=== PATIENT | female | born 2000 | race Caucasian/White ===

== ENCOUNTER 2019-07-02 18:05 | Emergency (ER) | payer OTHER, SELFPAY ==
[2019-07-02 18:10] VITALS: BP 104/57; PULSE 68; RESP 14; TEMP 36.4; O2SAT 100
--- NOTE | 2019-07-02 18:30 | ED.FEMALEGU ---
HPI - Female Genitourinary General Chief complaint: Urogenital-Female Stated complaint: uti History of Present Illness HPI Narrative: Patient states that she has been having urinary symptoms for the past month and this on continues to stay and she figured she would come in to get it treated due to it is not going anywhere. Related Data Home Medications Medication Instructions Recorded Confirmed sulfacetamide sodium-sulfur 1 applic TOPICAL BID 07/02/19 07/02/19 Allergies Allergy/AdvReac Type Severity Reaction Status Date / Time No Known Allergies Allergy Verified 07/02/19 18:19 Review of Systems Review of Systems: Narrative: CONSTITUTIONAL: Denies fever, chills, or sweats. EYES: Denies visual changes, redness, or discharge. ENT: Denies rhinorrhea, congestion, sore throat, or otalgia. CARDIOVASCULAR:Denies chest pain, palpitations, or edema. RESPIRATORY: Denies cough or dyspnea. GASTROINTESTINAL: Denies abdominal pain, nausea, vomiting, or diarrhea. GENITOURINARY: Reports dysuria or hematuria. SKIN:[Denies rash or itching. MUSCULOSKELETAL:Denies back pain, joint pain, or myalgia. NEUROLOGIC: Denies headache, numbness, or weakness. PSYCHIATRIC:Denies anxiety or depression PMFSH Comments At time as signature, I have reviewed and agree with nursing past medical, social, surgical and family history. Please see nursing chart for further information. There is no relevant family history pertinent to the presenting complaint. Exam Narrative: Exam Narrative: GENERAL:Well-appearing, well-nourished, and in no acute distress. HEAD:Normocephalic, atraumatic. EYES: PERRLA and EOMI. ENT: Nares clear, no rhinorrhea or epistaxis. Mucous membranes moist. NECK: Supple. CHEST: Clear to auscultation. No respiratory distress. HEART: Regular rate and rhythm. No murmur heard. Normal peripheral pulses. ABDOMEN: Soft, nontender, nondistended, normal active bowel sounds.frequency with dysuria denies fever, nausea or hematuria EXTREMITIES: Normal range of motion. No edema. SKIN: Warm, dry, no rash. NEURO: No focal deficits. Alert and oriented x3. Course Course Emergency Course: Patient is aware of diagnosis, understands and agrees to treatment plan. Anticipatory guidance given. Patient agrees to follow-up as directed and is aware of reasons to seek care at the emergency department. Vital Signs Vital signs: Vital Signs Temperature 97.6 F 07/02/19 18:10 Pulse Rate 68 07/02/19 18:10 Respiratory Rate 14 07/02/19 18:10 Blood Pressure 104/57 L 07/02/19 18:10 Pulse Oximetry 100 07/02/19 18:10 Temperature 97.6 F 07/02/19 18:10 Pulse Rate 68 07/02/19 18:10 Respiratory Rate 14 07/02/19 18:10 Blood Pressure 104/57 L 07/02/19 18:10 Pulse Oximetry 100 07/02/19 18:10 MDM - Female Genitourinary Lab Data Labs: Urine Glucose Negative Reference Range: Negative Urine Bilirubin Negative Reference Range: Negative Urine Ketone Negative Reference Range: Negative Urine Specific Keo 1.030 Reference Range:1.001-1.035 Urine Blood Trace Reference Range: Negative * * Urine pH 5.5 Reference Range: 5.0-9.0 Urine Protein Negative Reference Range: Negative Urine Urobilinogen 0.2 Reference Range: 0.2-1.0 Urine Nitrate Negative Reference Range: Negative Urine Leukocyte 1+ Reference Range: Negative Urine Color Yellow Reference Range: Yellow Urine Characteristics Cloudy Discharge Plan Discharge Clinical Impression: Urinary tract infection Qualifiers: Urinary tract infection type: acute cystitis Hematuria presence: with hematuria Qualified Code(s): N30.01
== END 2019-07-02 18:38 | disposition home or self-care (01) ==
PROVIDERS: Emergency Provider Nurse Practitioner Family
DX: N30.01 Acute cystitis with hematuria (principal)
CPT/HCPCS: 81003; 87077; 87086; 87088; 87186; 99213; G0463

== ENCOUNTER 2019-10-15 11:38 | Emergency (ER) | payer OTHER, SELFPAY ==
[2019-10-15 11:46] VITALS: BP 101/58; PULSE 88; RESP 14; TEMP 36.7; O2SAT 99
--- NOTE | 2019-10-15 11:51 | ED.GENADULT ---
HPI - General Adult General Chief complaint: Skin/Abscess/Foreign Body Stated complaint: Bites Time Seen by Provider: 10/15/19 11:51 Source: patient and RN notes reviewed Mode of arrival: ambulatory (carried) Limitations: no limitations History of Present Illness HPI narrative: 19-year-old female presents with complaints of diffused red raised, circular, varies sizes, itching rash to RT diffused leg, anterior and posterior trunk, buttock, and diffused abdomen for the past 2 days. Calamine lotion without relief. Denies open area or drainage. Denies new detergent, personal hygiene products or laundry detergents. No new foods or medications. No swelling, burning, or bleeding. Denies fever, chills, weakness, facial swelling, or tongue swelling. Denies dyspnea. LMP 10/13/19. Remains active. The patient reports he have not been diagnosed with COVID-19. The patient reports he is not waiting for the results of a COVID-19 lab test. The patient reports he do not have fatigue or myalgia. The patient reports he do not have a new or worsening cough or shortness of breath. Denies chest pain. The patient reports he do not have any rhinorrhea, congestion, sore throat, nausea, vomiting, abdominal pain, and diarrhea. Tolerating po intake well. Denies recent out the country traveling. Denies concerns for COVID-19 or exposures been home with limited outdoor exposure except for essential household needs, work, and return home. At this time, patient is not suspected of having COVID-19. Some parts of this dictation were generated by voice recognition software and may contain typographical and/or grammatical inaccuracies. Related Data Allergies Allergy/AdvReac Type Severity Reaction Status Date / Time No Known Allergies Allergy Verified 10/15/19 11:51 Review of Systems Review of Systems: Narrative: CONSTITUTIONAL: Denies fever, chills, sweats. EYES: Denies visual changes, redness, discharge. ENT: Denies rhinorrhea, congestion, sore throat, otalgia. CARDIOVASCULAR: Denies chest pain, palpitations, edema. RESPIRATORY: Denies dyspnea, wheezing, cough. GASTROINTESTINAL: Denies abdominal pain, nausea, vomiting, diarrhea. GENITOURINARY: Denies dysuria, hematuria, abnormal discharge. SKIN: Diffused red raised, circular, varies sizes, itching rash to RT diffused leg, anterior and posterior trunk, buttock, and diffused abdomen. Denies open areas, drainage. MUSCULOSKELETAL: Denies acute back pain, joint pain, or myalgia. NEUROLOGIC: Denies numbness or focal weakness. PSYCHIATRIC: Denies anxiety or depression. All other systems reviewed are negative, except as documented in HPI and below. [facility] Past Medical History Medical History (Updated 10/15/19 @ 14:55 by KERRIE Russell) Herpes genitalia Surgical History Surgical History (Updated 10/15/19 @ 12:01 by KERRIE Russell) No significant past surgical history Family History Family History (Updated 10/15/19 @ 12:03 by KERRIE Russell) Father Hypertension Anxiety Mother Multiple sclerosis Social History Social History (Updated 10/15/19 @ 12:04 by KERRIE Russell) Smoking status: Current every day smoker Tobacco type: e-cigarettes/vaping Second hand tobacco smoke exposure: No Alcohol intake: current Substance use: never Living arrangements: with family Occupation/Education: student Gender identity (if verbalized by the patient): Female Sexual Orientation (if Verbalized by the Patient): Straight or Heterosexual Comments At time of signature, agree with nurse past medical, surgical, social, and family history. There is no relevant family history pertinent to the presenting complaint. Exam Narrative: Exam Narrative: GENERAL: This is a well-nourished, well-developed patient, in no apparent distress. Talks in full sentences and ambulates with steady gait without dyspnea. HEAD: normocephalic, atraumatic. EYES: PERRL. Sclera clear/w
== END 2019-10-15 12:09 | disposition home or self-care (01) ==
PROVIDERS: Emergency Provider Nurse Practitioner Family
DX: B88.0 Other acariasis (principal); F17.290 Nicotine dependence, other tobacco product, uncomplicated
CPT/HCPCS: 99213; G0463

== ENCOUNTER 2022-02-28 10:56 | Emergency (ER) | payer OTHER, SELFPAY ==
[2022-02-28 11:10] VITALS: BP 110/73; PULSE 82; RESP 16; TEMP 37.3; O2SAT 99
--- NOTE | 2022-02-28 11:42 | ED.URI ---
HPI - URI/Sore Throat General Chief Complaint: Upper Respiratory Infection Stated Complaint: Runny Nose/Cough Time Seen by Provider: 02/28/22 11:35 Source: patient and RN notes reviewed Mode of arrival: ambulatory Limitations: no limitations History of Present Illness HPI Narrative: 21-year-old female presented for complaint of sinus pressure, congestion, and cough for over 2 weeks. She endorses facial pressure. She denies shortness of breath, wheezing, nausea, vomiting diarrhea, fevers or chills. She is taking Mucinex for symptoms. MD elicited complaint: cough Related Data Allergies Allergy/AdvReac Type Severity Reaction Status Date / Time No Known Allergies Allergy Verified 02/28/22 11:15 Review of Systems Review of Systems: Per HPI [facility] Past Medical History Medical History Herpes genitalia Surgical History Surgical History No significant past surgical history Family History Family History Father Hypertension Anxiety Mother Multiple sclerosis Social History Social History Smoking status: Current every day smoker Tobacco type: e-cigarettes/vaping Second hand tobacco smoke exposure: No Alcohol intake: current Substance use: never Gender identity (if verbalized by the patient): Female Sexual Orientation (if Verbalized by the Patient): Straight or Heterosexual Exam Narrative: GENERAL: Ill-appearing, nontoxic EYES: PERRLA, conjunctivae clear ENT: Mucous membranes moist. TMs pearly squires with dull light reflex bilaterally; no tragal tenderness. Oropharynx erythematous without lesions or exudate NECK: Supple. No lymphadenopathy CHEST: Clear to auscultation, breath sounds equal. No respiratory distress, speaks in full sentences. HEART: Regular rate and rhythm. No murmur heard. SKIN: Warm, dry, no rash. NEURO: Alert and oriented x3. PSYCH: Normal mood and affect Course Course Emergency Course: Patient is aware of diagnosis, understands and agrees to treatment plan. Anticipatory guidance given. Patient agrees to follow-up as directed and is aware of reasons to seek care at the emergency department. Portions of this record may have been created with voice recognition software [employer] of Care: Express Care Visit Vital Signs Vital signs: Vital Signs Temperature 99.1 F 02/28/22 11:10 Pulse Rate 82 02/28/22 11:10 Respiratory Rate 16 02/28/22 11:10 Blood Pressure 110/73 02/28/22 11:10 Pulse Oximetry 99 02/28/22 11:10 Oxygen Delivery Room Air 02/28/22 11:10 Temperature 99.1 F 02/28/22 11:10 Pulse Rate 82 02/28/22 11:10 Respiratory Rate 16 02/28/22 11:10 Blood Pressure 110/73 02/28/22 11:10 Pulse Oximetry 99 02/28/22 11:10 Oxygen Delivery Room Air 02/28/22 11:10 reviewed MDM - URI/Sore Throat MDM Narrative Medical decision making narrative: Advised supportive measures and signs/symptoms to go to the ER. Pt is appropriate for outpt treatment and f/u. Differential Diagnosis Differential diagnosis: Likely upper respiratory infection, sinusitis and viral infection Discharge Plan Discharge Clinical Impression: Upper respiratory infection Patient Disposition: Home, Self-Care Condition: Stable Instructions: Antibiotic Form, Rhinosinusitis (ED) Additional Instructions: Recommend Flonase spray and Zyrtec (or Claritin/Gloria) over the counter Cough syrup may cause drowsiness; avoid driving or take it at night time. Tylenol 1000mg every 8 hours as needed for pain Symptomatic treatment includes: rest, fluids, and increase humidity of the air at home. Follow up with your primary care provider in 1 week. Go to the ER for worsening symptoms or concerns. Prescriptions: New doxycycline hyclate 100 m
== END 2022-02-28 11:49 | disposition home or self-care (01) ==
PROVIDERS: Emergency Provider Nurse Practitioner Family
DX: J06.9 Acute upper respiratory infection, unspecified (principal); F17.290 Nicotine dependence, other tobacco product, uncomplicated
CPT/HCPCS: 99213; G0463